=== PATIENT | female | born 1965 | race Caucasian/White ===

== ENCOUNTER 2019-03-14 11:48 | Inpatient (IN) | payer MEDICAID ==
[~2019-03-14] VITALS: Ht 152.4 cm; Wt 60.8 kg
[2019-03-14 11:52] VITALS: BP 113/64
--- NOTE | 2019-03-14 12:29 | NUR ---
PT AMB TO BED 3
--- NOTE | 2019-03-14 12:30 | NUR ---
C/O WEAKNESS, FEVER AND N/V X 5 DAYS WITH GENERALIZED BODY ACHES. TEMP NOW 99.4 ORAL. DENIES UTI SYMPTOMS. WENT TO [facility] YESTERDAY; ADVISED PT TO GO TO ER TO BE EVALUATED FOR DEHYDRATION. PT STATES DRINKS A LOT OF FLUIDS BUT WILL VOMIT. HX- NONE RX- NONE NKA
[2019-03-14] MEDS ORDERED: NACL 0.9% 1,000 ML IV ONE ×2 (13:10→14:50)
[2019-03-14] MEDS ORDERED: NACL 0.9% 1,000 ML IV SCH (13:10)
[2019-03-14 14:30] LABS: BASOPHILS % (AUTO) 0.4 % (0.0-2.0); EOSINOPHILS % (AUTO) 0.2 % (0.0-4.0); HEMATOCRIT 33.1 % (36-48); HEMOGLOBIN 11.4 g/dL (12.0-16.0); LYMPHOCYTES # (AUTO) 1.1 K/uL (2.5-16.5); LYMPHOCYTES % (AUTO) 9.6 % (20.5-51.1); MEAN CORPUSCULAR HEMOGLOBIN 29 pg (27-31); MEAN CORPUSCULAR HGB CONC 34 g/dL (33-37); MEAN CORPUSCULAR VOLUME 84.4 fL (80-94); MONOCYTES % (AUTO) 8.9 % (1.7-9.3); NEUTROPHILS # (AUTO) 9.5 K/uL (1.8-7.7); NEUTROPHILS % (AUTO) 80.9 % (42.2-75.2); PLATELET COUNT (AUTO) 156 K/uL (140-450); RED BLOOD CELL COUNT(AUTO) 3.93 MIL/uL (4.20-5.40); RED CELL DISTRIBUTION WIDTH 14.2 % (11.6-13.7); WHITE BLOOD COUNT (AUTO) 11.8 K/uL (4.8-10.8)
[2019-03-14 14:46] LABS: APPEARANCE,URINE CLEAR (CLEAR); BILIRUBIN,URINE 2+ (NEGATIVE); BLOOD, URINE 2+ (NEGATIVE); COLOR,URINE ORANGE (YELLOW); LEUKOCYTE ESTERASE ,URINE TRACE (NEGATIVE); NITRITE, URINE NEGATIVE (NEGATIVE); UGLUCOSE NEGATIVE (NEGATIVE)
[2019-03-14] MEDS ORDERED: metroNIDAZOLE 500 MG/NS PREMIX 100 ML IV ONE (14:50)
[2019-03-14] MEDS ORDERED: PIPERACILLIN/TAZOBACTAM 3.375 GM in DEXTROSE 5% 50 ML IV ONE (14:50)
[2019-03-14 15:00] LABS: ANION GAP 15.3 (8-16); CARBON DIOXIDE 26.6 mmol/L (21-32); CHLORIDE 101 mmol/L (98-107); SODIUM SERUM 140 mmol/L (136-145)
[2019-03-14] MEDS ORDERED: PIPERACILLIN/TAZOBACTAM 3.375 GM VIAL IV ONE ×2 (15:00→23:03)
[2019-03-14 15:01] LABS: CREATININE 0.6 mg/dL (0.6-1.3); GFR ARICAN-AMERICAN 135 mL/min (>90); GLUCOSE 110 mg/dL (74-106); UREA NITROGEN, BLOOD 11 mg/dL (7-18)
[2019-03-14 15:07] LABS: ALBUMIN 2.8 g/dL (3.4-5.0); ASPARTATE AMINOTRANSFERASE 87 U/L (15-37); TOTAL BILIRUBIN 1.2 mg/dL (0.0-1.0)
[2019-03-14 15:12] LABS: ACETONE, SERUM NEGATIVE (NEGATIVE); AMYLASE 33 U/L (25-115); LIPASE 103 U/L (73-393); MAGNESIUM 2.2 mg/dL (1.8-2.4); POTASSIUM 2.9 mmol/L (3.5-5.1)
[2019-03-14] MEDS ORDERED: KCL 20 MEQ/WATER INJ PREMIX 100 ML IV ONE (15:25)
[2019-03-14] MEDS ORDERED: POTASSIUM CHLORIDE 10 MEQ TABER PO ONE (15:25)
[2019-03-14 15:29] LABS: URIC ACID 3.1 mg/dL (2.6-7.2)
[2019-03-14 15:35] LABS: RBC,URINE 11-20 (MOD) /HPF (0-5)
[2019-03-14 15:36] LABS: WBC,URINE 0-5 /HPF (0-5)
[2019-03-14] MEDS ORDERED: ONDANSETRON 4 MG/2 ML VIAL IM/IVP PRN (15:50)
[2019-03-14] MEDS: NACL 0.9% 1,000 ML IV SCH (15:50)
--- NOTE | 2019-03-14 16:27 | NUR ---
FAMILY AT BEDSIDE. Patient appears to be resting comfortably in bed. Vital Signs within normal limits. Respirations even and unlabored.
[2019-03-14 16:59] LABS: MAGNESIUM 2.2 mg/dL (1.8-2.4)
--- NOTE | 2019-03-14 17:30 | NUR ---
RECEIVED PATIENT FROM CAPABILITY LEAD. PATIENT IS FULL CODE, NKA. DENIES HEALTH HISTORY. PATIENT IS ON ROOM AIR. AAOX4, AMBULATORY. PATIENT RECEIVED 2L BOLUS IN ER AND NS INFUSING AT 100ML/HR. IV KCL INFUSING CONTINUED FROM ER. WILL ENDORSE TO NEXT SHIFT TO CONTINUITY OF CARE
[2019-03-14 17:31] LABS: PHOSPHORUS 1.7 mg/dL (2.5-4.9)
--- NOTE | 2019-03-14 18:00 | NUR ---
PATIENT SIGNED CONSENT FOR CT SCAN WITH CONTRAST, [facility]
[2019-03-14 18:32] LABS: FREE T4 (FREE THYROXINE) 1.21 ng/dL (0.76-1.46); THYROID STIMULATING HORMONE 0.97 uIU/mL (0.34-3.74)
--- NOTE | 2019-03-14 18:44 | NUR ---
PATIENT IS LEAVING UNIT FOR CT SCAN AND ABDOMINAL ULTRASOUND. DISCONNECTED HER FROM IV.
--- NOTE | 2019-03-14 19:10 | NUR ---
RECEIVED REPORT FROM DAY SHIFT NURSE SRAVANTHI RN, PT CURRENTLY AT [place].
--- NOTE | 2019-03-14 19:20 | NUR ---
PT ARRIVED BACK AT UNIT, NO DISTRESS NOTED, IV TO R AC 20G AND L AC 20G, PATENT INTACT, INFUSING WELL, PT ON ROOM AIR, NO SOB NOTED, PT STATED HAVING NO PAIN OR DISCOMFORT AT THIS MOMENT, INITIAL ASSESSMENT DONE, ALL SAFETY PRECAUTION MET, CALL LIGHT WITHIN REACH, WILL CONTINUE TO MONITOR.
[2019-03-14 20:00] VITALS: BP 104/60
[2019-03-14] MEDS: KETOROLAC 30 MG/ML VIAL IM PRN (20:06)
--- NOTE | 2019-03-14 20:06 | NUR ---
TORADOL PER DR ORDER GIVEN FOR TEMPERATURE 101.6, COOLING MEASURES ADMINISTERED, PT TOLERATED WELL, NO DISTRESS NOTED, CURRENTLY PT IS HAVING BEDSIDE US. CALL LIGHT WITHIN REACH, US TECH AT BEDSIDE, WILL CONTINUE TO MONITOR.
[2019-03-14 20:40] LABS: ANION GAP 14.4 (8-16); CARBON DIOXIDE 24.2 mmol/L (21-32); CREATININE 0.6 mg/dL (0.6-1.3); POTASSIUM 3.6 mmol/L (3.5-5.1)
--- NOTE | 2019-03-14 21:06 | NUR ---
RECHECKED PT TEMPERATURE 100.0, PT RESTING, NO DISTRESS NOTED, CALL LIGHT WITHIN REACH, COOLING MEASURE CONTINUED, WILL CONTINUE TO MONITOR.
--- NOTE | 2019-03-14 22:33 | NUR ---
PT RESTING NO DISTRESS NOTED, TEMP TAKEN 99.4, PT RESTING, COOLING MEASURE CONTINUED, WILL CONTINUE TO MONITOR.
[2019-03-14 22:41] LABS: BARBITURATE, URINE NEG. ng/ml (NEG <=200); BENZODIAZEPINE, URINE NEG. ng/mL (NEG <=200); CANNABINOID, URINE NEG. ng/mL (NEG <=50); COCAINE, URINE NEG. ng/mL (NEG <=300); OPIATE, URINE NEG. ng/mL (NEG <=2000); PHENCYCLIDINE SCREEN,URINE NEG. ng/mL (NEG <=25)
[2019-03-14] MEDS: PIPERACILLIN/TAZOBACTAM 3.375 GM in DEXTROSE 5% 50 ML IV SCH (23:15)
--- NOTE | 2019-03-14 23:15 | NUR ---
DUE MEDICATION ADMINISTERED, PT TOLERATED WELL, NO DISTRESS NOTED, CALL LIGHT WITHIN REACH, WILL CONTINUE TO MONITOR.
--- NOTE | 2019-03-14 23:55 | NUR ---
PT SLEEPING, NO DISTRESS NOTED, V/S TAKEN, TEMP WENT DOWN TO 98.1, NO DISTRESS NOTED, CALL LIGHT WITHIN REACH, WILL CONTINUE TO MONITOR.
[2019-03-15] VITALS: BP 101/56
--- NOTE | 2019-03-15 03:00 | NUR ---
PT AMBULATED TO RESTROOM, TOLERATED WELL, NO DISTRESS NOTED, CALL LIGHT WITHIN REACH, WILL CONTINUE TO MONITOR.
[2019-03-15 04:00] VITALS: BP 109/68
--- NOTE | 2019-03-15 04:22 | NUR ---
CHECKED ON PT, PT SLEEPING, NO DISTRESS NOTED, V/S TAKEN, CALL LIGHT WITHIN REACH, WILL CONTINUE TO MONITOR.
[2019-03-15] MEDS: NACL 0.9% 1,000 ML IV SCH ×3 (04:49→20:26)
[2019-03-15] MEDS: PIPERACILLIN/TAZOBACTAM 3.375 GM in DEXTROSE 5% 50 ML IV SCH (06:20)
[2019-03-15] MEDS ORDERED: PIPERACILLIN/TAZOBACTAM 3.375 GM VIAL IV ONE (06:38)
[2019-03-15 07:06] LABS: ANION GAP 14.3 (8-16); CARBON DIOXIDE 22.2 mmol/L (21-32); CREATININE 0.6 mg/dL (0.6-1.3); POTASSIUM 3.5 mmol/L (3.5-5.1)
--- NOTE | 2019-03-15 07:17 | NUR ---
ENDORSED PT TO DAY SHIFT NURSE RN SRAVANTHI, ZACKERY RESTING, NO DISTRESS NOTED, CALL LIGHT WITHIN REACH.
[2019-03-15 07:22] LABS: CHOL/HDL RATIO 13.9 (1-4.5)
--- NOTE | 2019-03-15 07:25 | NUR ---
RECEIVED REPORT FROM NIGHT RN. PATIENT IS FULL CODE, NKA, ON ROOM AIR. CURRENTLY IN BED AWAKE. PT IS NPO FOR POSSIBLE ERCP. PT HAD LOW GRADE FEVER OVERNIGHT, WILL MONITOR TODAY AND UTILIZE COOLING MEASURES IF NEEDED. PENDING CONSULT WITH DR HICKS FOR UTERINE MASS SEEN IN ULTRASOUND. WILL CONTINUE WITH PLAN OF CARE FOR THE DAY.
[2019-03-15 07:27] LABS: BASOPHILS % (AUTO) 0.3 % (0.0-2.0); EOSINOPHILS % (AUTO) 0.1 % (0.0-4.0); HEMATOCRIT 30.5 % (36-48); HEMOGLOBIN 10.4 g/dL (12.0-16.0); LYMPHOCYTES # (AUTO) 1.1 K/uL (2.5-16.5); LYMPHOCYTES % (AUTO) 8.6 % (20.5-51.1); MEAN CORPUSCULAR HEMOGLOBIN 29 pg (27-31); MEAN CORPUSCULAR HGB CONC 34 g/dL (33-37); MEAN CORPUSCULAR VOLUME 84.7 fL (80-94); MONOCYTES # (AUTO) 1.6 K/uL (0.8-1.0); MONOCYTES % (AUTO) 12.6 % (1.7-9.3); NEUTROPHILS % (AUTO) 78.4 % (42.2-75.2); PLATELET COUNT (AUTO) 112 K/uL (140-450); RED CELL DISTRIBUTION WIDTH 14.2 % (11.6-13.7); WHITE BLOOD COUNT (AUTO) 12.7 K/uL (4.8-10.8)
[2019-03-15 08:00] VITALS: BP 116/61
--- NOTE | 2019-03-15 08:33 | NUR ---
PATIENT HAS BEEN SCREENED AND CATEGORIZED LOW NUTRITION RISK. PATIENT WILL BE SEEN WITHIN 7 DAYS OF ADMISSION. 03/20/[address]
[2019-03-15] MEDS ORDERED: SODIUM FERRIC GLUCONATE 125 MG in NACL 0.9% 100 ML IV SCH ×2 (10:00→12:00)
--- NOTE | 2019-03-15 10:00 | NUR ---
PATIENT RECEIVED LATE BREAKFAST TRAY. PER DR DOYLE, SHE DOESN'T NEED TO BE NPO D/T NO PROCEDURES FORESEEN FOR TODAY.
[2019-03-15 12:00] VITALS: BP 127/71
--- NOTE | 2019-03-15 12:08 | NUR ---
PATIENT IS SITTING UP IN BED, RESTING QUIETLY. NO COMPLAINTS AT THIS TIME.
--- NOTE | 2019-03-15 13:32 | NUR ---
ADMINISTERED TORADOL FOR TEMP 100.4 AND UTILIZED COOLING MEASURES VIA ICE PACKS. WILL RE-ASSESS TEMP AFTER 30 MIN.
[2019-03-15] MEDS: KETOROLAC 30 MG/ML VIAL IM PRN ×2 (13:33→19:52)
--- NOTE | 2019-03-15 14:00 | NUR ---
RECHECKED TEMP, WENT DOWN TO 100.1
--- NOTE | 2019-03-15 14:40 | NUR ---
BEGAN FIRST DOSE ROCEPHIN INFUSION. PATIENTS TEMP CAME DOWN TO 99.2
--- NOTE | 2019-03-15 15:50 | NUR ---
PATIENTS TEMPERATURE REDUCED TO 98.1. FAMILY AT BEDSIDE.
--- NOTE | 2019-03-15 15:55 | NUR ---
OBTAINED CONSENT FOR CT LIVER BX. PATIENTS BROTHER IS AT BEDSIDE AND DR DOYLE CAME AND EXPLAINED PROCEDURE. PATIENTS BROTHER SIGNED CONSENT FORM.
[2019-03-15 16:00] VITALS: BP 105/63
--- NOTE | 2019-03-15 16:06 | NUR ---
SPOKE TO DR BARROW AT [phone]. I ASKED IF HE WAS AVAILABLE TO DO CT GUIDED LIVER BIOPSY TOMORROW. HE SAID HE USUALLY DOES NOT DO CASES LIKE THAT, HE SAID HE WILL LOOK INTO IT. GAVE HIM THE PATIENTS MR# AND INFORMATION AND HE WILL CALL ME BACK TO SEE IF ANYMORE IS AVAILABLE TO DO IT TOMORROW
--- NOTE | 2019-03-15 16:49 | NUR ---
PT RESTING QUIETLY IN BED. NO COMPLAINTS AT THIS TIME. DENIES PAIN. TEMP AT 98.1
[2019-03-15] MEDS: metroNIDAZOLE 500 MG/NS PREMIX 100 ML IV SCH ×2 (17:20→23:30)
--- NOTE | 2019-03-15 18:34 | NUR ---
PATIENT RESTING QUIETLY IN BED. FAMILY AT BEDSIDE. ALL NEEDS HAVE BEEN MET. WILL ENDORSE TO FOOD SERVICE AIDE FOR CONTINUITY OF CARE.
--- NOTE | 2019-03-15 18:46 | NUR ---
PATIENT C/O CHILLS. TOOK TEMP, 98.3. OBTAINED STOOL SAMPLE AND SENT OVER TO LAB.
--- NOTE | 2019-03-15 19:15 | NUR ---
RECEIVED BEDSIDE REPORT FROM AM SHIFT REECE FISHMAN. PATIENT LAYING IN BED AWAKE WITH FAMILY AT BEDSIDE. NO SOB OR DISTRESS NOTED. ON ROOM AIR. IV ACCESS ON LEFT AND RIGHT AC 20 GAUGE, PATENT AND INTACT, INFUSING WELL. INITIAL ASSESSMENT DONE. SAFETY MEASURES IN PLACE. CALL LIGHT WITHIN PATIENT REACH. WILL CONTINUE TO MONITOR PATIENT.
--- NOTE | 2019-03-15 19:52 | NUR ---
PRN TORADOL GIVEN FOR TEMP OF 103.1 ORAL. COOLING MEASURES IN PLACE. WILL CONTINUE TO MONITOR PATIENT
--- NOTE | 2019-03-15 20:01 | NUR ---
TEMPERATURE RECHECKED WITH TEMP OF 100.0 ORAL. COOLING MEASURES STILL IN PLACE. WILL CONTINUE TO MONITOR. Addendum: 03/15/19 at 2304 by Ivonne Zafar RN TIME [id number]
[2019-03-15 20:30] VITALS: BP 109/63
--- NOTE | 2019-03-15 22:05 | NUR ---
TEMPERATURE REASSESSED WITH TEMP OF 98.9. PATIENT RESTING COMFORTABLY IN BED. WILL CONTINUE TO MONITOR PATIENT.
--- NOTE | 2019-03-16 00:24 | NUR ---
VITAL SIGNS DONE. PT SLEEPING COMFORTABLY IN BED. VISIBLE CHEST RISE AND FALL NOTED. WILL CONTINUE TO MONITOR PATIENT.
[2019-03-16 00:29] VITALS: BP 103/64
--- NOTE | 2019-03-16 02:07 | NUR ---
ROUNDS DONE. NO DISTRESS NOTED. WILL CONTINUE TO MONITOR PATIENT.
[2019-03-16 04:39] VITALS: BP 117/76
--- NOTE | 2019-03-16 04:40 | NUR ---
VITAL SIGNS DONE. PATIENT NOTED WITH TEMP OF 101.4. WILL MEDICATE PER ORDER. WILL CONTINUE TO MONITOR PATIENT.
[2019-03-16] MEDS: NACL 0.9% 1,000 ML IV SCH ×3 (04:46→22:09)
[2019-03-16] MEDS: KETOROLAC 30 MG/ML VIAL IM PRN ×2 (04:47→13:09)
--- NOTE | 2019-03-16 04:47 | NUR ---
PRN TORADOL GIVEN FOR TEMP OF 101.6. COOLING MEASURES RENDERED. WILL CONTINUE TO MONITOR PATIENT.
--- NOTE | 2019-03-16 05:58 | NUR ---
FOLLOW UP TEMPERATURE OF 99.8. COOLING MEASURES STILL IN PLACE. WILL CONTINUE TO MONITOR PATIENT.
[2019-03-16] MEDS: metroNIDAZOLE 500 MG/NS PREMIX 100 ML IV SCH ×3 (06:12→18:13)
[2019-03-16 06:18] LABS: BASOPHILS % (AUTO) 0.3 % (0.0-2.0); EOSINOPHILS % (AUTO) 0.1 % (0.0-4.0); HEMATOCRIT 29.1 % (36-48); HEMOGLOBIN 9.8 g/dL (12.0-16.0); LYMPHOCYTES % (AUTO) 6.7 % (20.5-51.1); MEAN CORPUSCULAR HEMOGLOBIN 29 pg (27-31); MEAN CORPUSCULAR HGB CONC 34 g/dL (33-37); MEAN CORPUSCULAR VOLUME 85.3 fL (80-94); MONOCYTES # (AUTO) 1.5 K/uL (0.8-1.0); MONOCYTES % (AUTO) 10.1 % (1.7-9.3); NEUTROPHILS # (AUTO) 12.5 K/uL (1.8-7.7); NEUTROPHILS % (AUTO) 82.8 % (42.2-75.2); PLATELET COUNT (AUTO) 157 K/uL (140-450); RED BLOOD CELL COUNT(AUTO) 3.41 MIL/uL (4.20-5.40); RED CELL DISTRIBUTION WIDTH 14.4 % (11.6-13.7); WHITE BLOOD COUNT (AUTO) 15.1 K/uL (4.8-10.8)
[2019-03-16 06:56] LABS: ALBUMIN 1.8 g/dL (3.4-5.0); CREATININE 0.5 mg/dL (0.6-1.3); TOTAL BILIRUBIN 1.4 mg/dL (0.0-1.0)
--- NOTE | 2019-03-16 07:16 | NUR ---
PATIENT IN STABLE CONDITION. NO DISTRESS NOTED. CALL LIGHT WITHIN PATIENT REACH. ENDORSED TO AM SHIFT REECE FERRERA FOR CONTINUITY OF CARE.
--- NOTE | 2019-03-16 07:18 | NUR ---
RECEIVED BEDSIDE REPORT FROM SAFETY ENGINEER NURSE FOR CONTINUITY OF CARE. PATIENT IS AWAKE AND RESTING ON BED AT THIS TIME. PATIENT IS AAOX4, SPEAKS JAPANESE AND UNDERSTAND SOME SYRIAC. RESPIRATION EVEN AND UNLABORED ON RA. DENIED PAIN, SOB, AND DIZZINESS. NO SIGNS OF DISTRESS NOTED. IV ON R AND L AC 20G, CLEAN AND INTACT, RAC INFUSING PER MD ORDER. PATIENT IS CONTINENT AND ABLE TO AMBULATE WITH STANDBY ASSIST. DISCUSSED PLAN OF CARE WITH PATIENT AND PATIENT VERBALIZED OK. NPO BY MIDNIGHT IN PLACE AND SIGN POSTED AND PATIENT WAS AWARE SHE IS NPO. SAFETY MEASURES IN PLACE. BED IN LOW POSITION AND CALL LIGHT WITHIN REACH. INSTRUCTED PATIENT TO USE THE CALL LIGHT FOR ANY ASSISTANCE AND PATIENT WAS AWARE.
[2019-03-16 08:00] VITALS: BP 107/60
[2019-03-16] MEDS: ASCORBIC ACID 500 MG TAB PO SCH (09:02)
[2019-03-16] MEDS: FERROUS SULFATE 325 MG TABEC PO SCH ×2 (09:02→18:13)
[2019-03-16] MEDS: LACTOBACILLUS RHAMNOSUS GG 1 EACH CAP PO SCH (09:02)
--- NOTE | 2019-03-16 09:02 | NUR ---
ADMINISTERED MEDS PER MD ORDER, PATIENT TOLERATED WELL. MEDS EDUCATION PROVIDED TO PATIENT AND PATIENT VERBALIZED UNDERSTANDING. PATIENT AWAKE AND RESTING ON BED. DENIED PAIN, SOB, NAUSEA, AND VOMITING. NO SIGNS OF DISTRESS NOTED. TELE MONITOR ATTACHED. SAFETY MEASURES IN PLACE. BED IN LOW POSITION AND CALL LIGHT WITHIN REACH. INSTRUCTED PATIENT TO USE THE CALL LIGHT FOR ANY ASSISTANCE AND PATIENT WAS AWARE.
[2019-03-16] MEDS ORDERED: KCL 20 MEQ/WATER INJ PREMIX 200 ML IV ONE (10:00)
--- NOTE | 2019-03-16 11:24 | NUR ---
PATIENT AWAKE AND RESTING ON BED AT THIS TIME. DENIED SOB, PAIN, DIZZINESS. NO SIGNS OF DISTRESS NOTED. SAFETY MEASURES IN PLACE. BED IN LOW POSITION AND CALL LIGHT WITHIN REACH. INSTRUCTED PATIENT TO USE THE CALL LIGHT FOR ANY ASSISTANCE AND PATIENT WAS AWARE.
--- NOTE | 2019-03-16 11:50 | NUR ---
PATIENT IS TALKING TO VISITOR MICHEL BY BEDSIDE. NO SIGNS OF DISTRESS NOTED. SAFETY MEASURES IN PLACE. BED IN LOW POSITION AND CALL LIGHT WITHIN REACH. INSTRUCTED PATIENT TO USE THE CALL LIGHT FOR ANY ASSISTANCE AND PATIENT WAS AWARE.
[2019-03-16] MEDS ORDERED: POTASSIUM CHLORIDE 40 MEQ, LIDOCAINE MPF 1% 25 MG in NACL 0.9% 250 ML IV SCH (12:00)
--- NOTE | 2019-03-16 12:18 | NUR ---
ADMINISTERED MED VIA IVPB PER MD ORDER, MED EDUCATION PROVIDED TO PATIENT AT BEDSIDE, PATIENT VERBALIZED UNDERSTANDING. PATIENT AWAKE AND TALKING TO VISITOR MICHEL BY BEDSIDE. NO SIGNS OF DISTRESS NOTED. SAFETY MEASURES IN PLACE. BED IN LOW POSITION AND CALL LIGHT WITHIN REACH. INSTRUCTED PATIENT TO USE THE CALL LIGHT FOR ANY ASSISTANCE AND PATIENT WAS AWARE.
--- NOTE | 2019-03-16 13:09 | NUR ---
PATIENT COMPLAINED THAT SHE FEELS WARM ON HER FOREHEAD, CHECKED TEMP AND RECEIVED 101.5 ORALLY. ADMINISTERED KETOROLAC VIA IVP PER MD ORDER, MED EDUCATION PROVIDED TO PATIENT AND MICHEL AT BEDSIDE. APPLIED COOLING PAD ON PATIENT FOREHEAD. WILL REASSESS TEMP SHORTLY. PATIENT IS RESTING ON BED AT THIS TIME. SAFETY MEASURES IN PLACE. BED IN LOW POSITION AND CALL LIGHT WITHIN REACH. INSTRUCTED PATIENT TO USE THE CALL LIGHT FOR ANY ASSISTANCE AND PATIENT WAS AWARE.
--- NOTE | 2019-03-16 13:40 | NUR ---
REASSESSED TEMP AND RECEIVED 99.3 ORALLY. PATIENT COMPLAINED HER MOUTH IS SO DRY, EDUCATED PATIENT THAT SHE HAS TO BE NPO FOR HER PROCEDURE AND FOR HER SAFETY, PATIENT AND MICHEL VERBALIZED UNDERSTANDING. PROVIDED ICE CHIPS. PATIENT AWAKE AND TALKING TO MICHEL BY BEDSIDE. SAFETY MEASURES IN PLACE. BED IN LOW POSITION AND CALL LIGHT WITHIN REACH. INSTRUCTED PATIENT TO USE THE CALL LIGHT FOR ANY ASSISTANCE AND PATIENT WAS AWARE.
[2019-03-16 13:43] LABS: FERRITIN 868 ng/mL (15 - 150); TRANSFERRIN 157 mg/dL (200 - 370)
--- NOTE | 2019-03-16 15:16 | NUR ---
PATIENT IS GETTING ECHOCARDIOGRAM. PRINCIPAL ELECTRICAL ENGINEER QUIN IS BY BEDSIDE. ASSESSED PATIENT ORALLY AND RECEIVED 98.8. PATIENT DENIED NAUSEA, VOMITING, AND DIZZINESS. NO SIGNS OF DISTRESS NOTED. SAFETY MEASURES IN PLACE. BED IN LOW POSITION AND CALL LIGHT WITHIN REACH. INSTRUCTED PATIENT TO USE THE CALL LIGHT FOR ANY ASSISTANCE AND PATIENT SAID OK.
--- NOTE | 2019-03-16 15:25 | NUR ---
PATIENT AWAKE AND TALKING TO [id number] BELÉN AT BEDSIDE. NO SIGNS OF DISTRESS NOTED. SAFETY MEASURES IN PLACE. BED IN LOW POSITION AND CALL LIGHT WITHIN REACH. INSTRUCTED PATIENT TO USE THE CALL LIGHT FOR ANY ASSISTANCE AND PATIENT SAID OK.
[2019-03-16 16:00] VITALS: BP 114/63
--- NOTE | 2019-03-16 17:48 | NUR ---
PATIENT AWAKE AND RESTING ON BED AT THIS TIME. DENIED PAIN,NAUSEA AND VOMITING. NO SIGNS OF DISTRESS NOTED. SAFETY MEASURES IN PLACE. BED IN LOW POSITION AND CALL LIGHT WITHIN REACH. INSTRUCTED PATIENT TO USE THE CALL LIGHT FOR ANY ASSISTANCE AND PATIENT WAS AWARE.
--- NOTE | 2019-03-16 18:13 | NUR ---
ADMINISTERED MED VIA IVPB PER MD ORDER, MED EDUCATION PROVIDED TO PATIENT AT BEDSIDE, PATIENT VERBALIZED UNDERSTANDING. PATIENT AWAKE AND TALKING TO VISITOR MICHEL AND EATING DINNER. NO SIGNS OF DISTRESS NOTED. SAFETY MEASURES IN PLACE. BED IN LOW POSITION AND CALL LIGHT WITHIN REACH. INSTRUCTED PATIENT TO USE THE CALL LIGHT FOR ANY ASSISTANCE AND PATIENT WAS AWARE.
--- NOTE | 2019-03-16 19:26 | NUR ---
ENDORSED PATIENT AT BEDSIDE TO BUCKLER AND LACER NURSE FOR CONTINUITY OF CARE. PATIENT AWAKE AND TALKING TO VISITORS AT BEDSIDE. NO SIGNS OF DISTRESS NOTED. PATIENT IS IN STABLE CONDITION. SAFETY MEASURES IN PLACE. BED IN LOW POSITION AND CALL LIGHT WITHIN REACH.
--- NOTE | 2019-03-16 19:35 | NUR ---
RECEIVED FROM A RN IN BED AWAKE AND ALERT WITH FAMILY MEMBERS IN HERE VISITING. NO COMPLAINTS DONE . CALL LIGHT WITH IN REACH. PT. IVF SITES INTACT AND WITH GOOD BLOOD RETURN . DX. OF ACUTE LIVER ABSCESS. CARE PLANS FOR THE NIGHT DISCUSSED WITH THEM.
[2019-03-16] MEDS: POTASSIUM CHLORIDE 10 MEQ TABER PO SCH (22:05)
[2019-03-16] MEDS: SODIUM FERRIC GLUCONATE 125 MG in NACL 0.9% 100 ML IV SCH (22:06)
--- NOTE | 2019-03-16 22:22 | NUR ---
PT. IN BED SLEEPING. AWAKE AND ABLE TO VERBALIZE SIMPLE NEEDS. REMINDED TO USE CALL LIGHT FOR ANY HELP SHE MAY NEED. UNDERSTANDS ALGERIAN . ENCOURAGED TO CALL FOR ANY HELP SHE MAY NEED.
[2019-03-17] VITALS: BP_SYST 106; BP_SYST 117; BP_DIAS 63; BP_DIAS 65
[2019-03-17] MEDS: metroNIDAZOLE 500 MG/NS PREMIX 100 ML IV SCH ×4 (01:00→17:59)
[2019-03-17] MEDS: POTASSIUM CHLORIDE 10 MEQ TABER PO SCH (01:02)
--- NOTE | 2019-03-17 01:46 | NUR ---
PT. IS SLEEPING AT THIS TIME. NO RESTLESSNESS. ENDORSED TO CHARGE NURSE FOR CONTINUITY OF CARE.
--- NOTE | 2019-03-17 01:47 | NUR ---
RECEIVED BEDSIDE REPORT FROM PM NURSE MALU. PATIENT ASLEEP IN BED. NO SOB OR DISTRESS NOTED ON ROOM AIR. IV ACCESS ON LEFT AND RIGHT AC. PATENT AND INTACT, INFUSING WELL. INITIAL ASSESSMENT DONE. BED IN LOW. PATIENT IS AMBULATORY.CALL LIGHT WITHIN PATIENT REACH. WILL CONTINUE TO MONITOR PT.
--- NOTE | 2019-03-17 03:30 | NUR ---
ROUNDS DONE. PATIENT ASSISTED TO RESTROOM AT THIS TIME. WILL CONTINUE TO MONITOR PATIENT.
--- NOTE | 2019-03-17 05:20 | NUR ---
ROUNDS DONE. PT SLEEPING COMFORTABLY. VISIBLE CHEST RISE AND FALL NOTED. WILL CONTINUE TO MONITOR.
[2019-03-17] MEDS: NACL 0.9% 1,000 ML IV SCH ×2 (05:25→14:02)
[2019-03-17] MEDS ORDERED: DEXT 5% /NACL 0.9% 1,000 ML IV SCH (06:20)
[2019-03-17 06:58] LABS: MAGNESIUM 1.8 mg/dL (1.8-2.4); PHOSPHORUS 2.5 mg/dL (2.5-4.9)
[2019-03-17 07:06] LABS: ANION GAP 13.1 (8-16); CARBON DIOXIDE 22.1 mmol/L (21-32); CREATININE 0.5 mg/dL (0.6-1.3); POTASSIUM 4.2 mmol/L (3.5-5.1)
[2019-03-17 07:25] LABS: HEMATOCRIT 26.3 % (36-48); HEMOGLOBIN 8.8 g/dL (12.0-16.0); MEAN CORPUSCULAR HEMOGLOBIN 29 pg (27-31); MEAN CORPUSCULAR HGB CONC 34 g/dL (33-37); MEAN CORPUSCULAR VOLUME 85.5 fL (80-94); PLATELET COUNT (AUTO) 240 K/uL (140-450); RED BLOOD CELL COUNT(AUTO) 3.08 MIL/uL (4.20-5.40); RED CELL DISTRIBUTION WIDTH 14.8 % (11.6-13.7)
--- NOTE | 2019-03-17 07:25 | NUR ---
Report received from nurse Coronado. Pt sleeping, appears comfortable. IVF infusing per order, Pt maintained NPO per order . Call light and personal items within easy reach, no s/s of acute distress noted at this time, will continue to monitor.
--- NOTE | 2019-03-17 07:25 | NUR ---
PT IN STABLE CONDITION. CALL LIGHT WITHIN PATIENT REACH. ENDORSED TO AM SHIFT NURSE FOR CONTINUITY OF CARE.
[2019-03-17] MEDS: FERROUS SULFATE 325 MG TABEC PO SCH ×2 (08:00→17:59)
[2019-03-17 08:07] LABS: HEPATITIS A ANTIBODY IGM Negative (Negative); HEPATITIS B CORE AB TOTAL Negative (Negative); HEPATITIS B SURFACE ANTIBODY Non Reactive (.); HEPATITIS B SURFACE ANTIGEN Negative (Negative)
[2019-03-17] MEDS: LACTOBACILLUS RHAMNOSUS GG 1 EACH CAP PO SCH (08:55)
[2019-03-17] MEDS: ASCORBIC ACID 500 MG TAB PO SCH (08:56)
[2019-03-17 09:18] LABS: LYMPHOCYTES % (MANUAL) 2 % (20-46); MONOCYTES % (MANUAL) 3 % (5-12)
--- NOTE | 2019-03-17 09:23 | NUR ---
DISCHARGE PLANNING : 54 YRS OLD FEMALE WAS ADMITTED WITH THE DX OF SEVER ABDOMINAL PAIN, NO MEDICAL HISTORY, WAS BROUGHT BY HER FROM HOME A/OX4 ,CT SHOWS ABSCESS ON RIGHT SIDE OF THE LIVER R/O MALIGNANCY D/C PLAN , CT ABDOMEN AND PELVIS AND LIVER BIOPSY TO BE DONE BY [facility] TO FOLLOW : Addendum: 03/18/19 at 1004 by Faith Carlisle CM DISCHARGE PLANNING : IR UNABLE TO PERFORM BIOPSY D/C PLAN TO TRANSFER TO HIGHER LEVEL OF CARE. FAXED TO [facility] AND [facility] TO FOLLOW Addendum: 03/18/19 at 1017 by Faith Carlisle CM D/C PLANNING : RECEIVED A CALL FROM [place] ALHAJI JONES WITH [facility] , PROVIDED ALL THE PT'S INFORMATION AND RESIDENT'S CELL PHONE ,PER [facility] WILL REVIEW THE CASE AND WILL CALL BACK.
--- NOTE | 2019-03-17 09:30 | NUR ---
Pt a/o able to communicate needs, maintained NPO per order for procedure, pt denies pain, denies gastric distress. Encouraged pt to ambulate per order, declines at this time. Safety precaution in place, Call light and personal items within easy reach, will continue to monitor.
[2019-03-17] MEDS ORDERED: fentaNYL 0.05 MG/ML VIAL ONE (10:59)
[2019-03-17] MEDS ORDERED: MIDAZOLAM 2 MG/2 ML VIAL ONE (11:00)
[2019-03-17] MEDS ORDERED: NALOXONE 0.4 MG/ML VIAL ONE (11:00)
[2019-03-17] MEDS ORDERED: FLUMAZENIL 0.5 MG/5 ML VIAL IVP ONE (11:02)
[2019-03-17] MEDS ORDERED: LIDOCAINE 1% 500 MG/50 ML VIAL ONE (11:18)
--- NOTE | 2019-03-17 11:23 | NUR ---
Pt remains awake a/o able to communicate needs, pt transported off unit to surgical services via bed, no s/s of acute distress noted at this time.
--- NOTE | 2019-03-17 12:41 | NUR ---
Pt remains A/O able to communicate needs, returned from surgical services, dressing to biopsy site dry and intact, pt denies pain or distress, family at bedside. No s/s of acute distress noted at this time. Safety precaution in place, Call light and personal items within easy reach, will continue to monitor.
--- NOTE | 2019-03-17 15:00 | NUR ---
Pt sleeping at this time, appears comfortable, no s/s of acute distress noted, safety precaution in place, call light and personal items within easy reach, will continue to monitor.
--- NOTE | 2019-03-17 15:18 | NUR ---
[facility] Patient: Dari Rodriguez : 1965 Age/Sex: 54/F Unit#: [id number] Room/Bed: 125/A User: Lara SOLORIO Date: 03/17/19 14:47 Type: CM: Discharge Planning Name: Anastasia. [place] Home Relationship: mother in law Pre-Admission Living Arrangements: Lives with Other Other: [id number] Prior ADL Independent Current Home Health Name/Tel: N/A Current Name/Tel: N/A Current Hospice Name/Tel: N/A Current Dialysis Name/Tel: N/A Healthcare Decision Maker: Patient Advance Directive No Tentative Discharge Plan Summary: Patient is a 54 year old female who was admitted for sepsis secondary to possible cholangitis versus hepatic abscess. I met with patient at bedside. Patient alert and oriented x4. Patient speaks Turkmen. Patient lives at home with her family and plans to return home upon discharge. Patient does not have a pcp at this time. I emphasized to her the importance of following up with a physician regularly and post discharge. She verbalized understanding. I provided her with a list of low cost clinics. She is independent with ADLs and does not use any DME at home. She denied hx of mental health. She also denied alcohol/substance abuse. She is not able to recall her [id number] Rani's phone number. She has had good communication with attending MD, resident MD, and nursing staff. She does not have any questions nor concerns at this time. Carpenter Repairer and/or Assistant Teaching Professor will follow up as needed. Signature: LOUIS Kinsey Date: Mar 17, 2019 Addendum: 03/17/19 at 1520 by Lara Altamirano I provided patient with education on Advance Directive and provided her with a blank form.
[2019-03-17 15:55] VITALS: BP 112/60
[2019-03-17] MEDS: KETOROLAC 30 MG/ML VIAL IVP PRN (15:55)
--- NOTE | 2019-03-17 17:15 | NUR ---
Pt remains a/o able to communicate needs, currently ambulating in duggan with family. Pt denies pain, denies sob, denies n/v, no s/s acute distress at this time, will continue to monitor.
--- NOTE | 2019-03-17 19:10 | NUR ---
Pt remains awake a/o able to communicate needs. Pt denies pain or discomfort, no s/s of acute distress noted at this time. Family remains at bedside. Safety precautions maintained in place. Call light and personal items within easy reach, no s/s of acute distress noted at this time. Report endorsed to oncoming nurse
--- NOTE | 2019-03-17 19:11 | NUR ---
RECD. RESTING IN BED, AWAKE, A/OX4. RESPIRATION EVEN AND UNLABORED. IV OF NS AT 70 ML/HR INFUSING, RIGHT AC G20. ABDOMEN WITH SOME DISTENSION, WITH POSITIVE BOWEL SOUNDS ON ALL QUADRANTS. PLAN OF CARE FOR THE SHIFT DISCUSSED. VERBALIZED UNDERSTANDING. DENIES PAIN 0/10. FAMILY AT THE BEDSIDE.
[2019-03-17 20:00] VITALS: BP 88/50
--- NOTE | 2019-03-17 20:00 | NUR ---
VS CHECKED - LEFT ARM - 88/50, RIGHT ARM - 88/57, HR -92. WILL INFORMED .
[2019-03-17] MEDS ORDERED: NACL 0.9% 500 ML IV ONE (20:30)
--- NOTE | 2019-03-17 20:55 | NUR ---
NS 500 ML BOLUS STARTED.
--- NOTE | 2019-03-17 21:00 | NUR ---
Patient's Plan of Care was discussed and reviewed with ILLUSIONIST: JAZ TORRES
[2019-03-17] MEDS: SODIUM FERRIC GLUCONATE 125 MG in NACL 0.9% 100 ML IV SCH (21:31)
--- NOTE | 2019-03-17 21:31 | NUR ---
LISETTEIT IVPB INFUSED BY REECE FAROOQ.
--- NOTE | 2019-03-17 21:55 | NUR ---
VS CHECKED - BP - 87/50, HR - 93. INFORMED DR. CAZARES.
--- NOTE | 2019-03-17 22:45 | NUR ---
VS CHECKED AGAIN . BP - 106/62, HR - 93. PATIENT RESTING COMFORTABLY SLEEPING IN BED.
[2019-03-18] MEDS: metroNIDAZOLE 500 MG/NS PREMIX 100 ML IV SCH ×4 (00:27→18:22)
--- NOTE | 2019-03-18 00:55 | NUR ---
ASSISTED TO BSC, BACK TO BED AFTER BM. ADVISED TO GO TO SLEEP.
--- NOTE | 2019-03-18 01:00 | NUR ---
SLEEPING COMFORTABLY IN BED.
[2019-03-18 01:45] VITALS: BP 102/58
--- NOTE | 2019-03-18 03:00 | NUR ---
STILL SLEEPING COMFORTABLY IN BED.
[2019-03-18] MEDS: NACL 0.9% 1,000 ML IV SCH ×3 (04:03→16:08)
[2019-03-18 07:00] LABS: ANION GAP 13.8 (8-16); CARBON DIOXIDE 21.4 mmol/L (21-32); CREATININE 0.5 mg/dL (0.6-1.3); POTASSIUM 3.2 mmol/L (3.5-5.1)
--- NOTE | 2019-03-18 07:00 | NUR ---
ABLE TO SLEEP WELL. AMBULATED TO BR TO VOID. CONDITION REMAIN STABLE. WILL ENDORSED TO AM SHIFT NURSE FOR CONTINUITY OF CARE.
[2019-03-18 07:07] LABS: MAGNESIUM 1.6 mg/dL (1.8-2.4); PHOSPHORUS 2.5 mg/dL (2.5-4.9)
--- NOTE | 2019-03-18 07:30 | NUR ---
RECEIVED REPORT FROM SINGLE CORNER CUTTER NURSE. PATIENT IN STABLE CONDITION.
[2019-03-18 08:00] VITALS: BP 121/61
[2019-03-18] MEDS ORDERED: POTASSIUM CHLORIDE 10 MEQ TABER PO SCH (08:30)
[2019-03-18] MEDS ORDERED: MAG SULF 2000 MG/WATER PREMIX 50 ML IV SCH (08:30)
[2019-03-18] MEDS: ASCORBIC ACID 500 MG TAB PO SCH (08:52)
[2019-03-18] MEDS: FERROUS SULFATE 325 MG TABEC PO SCH ×2 (08:52→18:22)
[2019-03-18] MEDS: LACTOBACILLUS RHAMNOSUS GG 1 EACH CAP PO SCH (08:52)
--- NOTE | 2019-03-18 09:00 | NUR ---
AM MEDICATIONS GIVEN. PT ALERT ORIENTED X 4. PATIENT AMBULATED TO THE BATHROOM. IV INTACT AND PATENT TO RIGHT AC. IVF INFUSING AT 70ML/HR. TOLERATING WELL. NO S/S OF DISTRESS NOTED.
[2019-03-18 09:13] LABS: RED BLOOD CELL COUNT(AUTO) 3.17 MIL/uL (4.20-5.40)
[2019-03-18 09:14] LABS: HEMATOCRIT 27.3 % (36-48); HEMOGLOBIN 9.3 g/dL (12.0-16.0); MEAN CORPUSCULAR HEMOGLOBIN 29 pg (27-31); MEAN CORPUSCULAR HGB CONC 34 g/dL (33-37); MEAN CORPUSCULAR VOLUME 86.2 fL (80-94); PLATELET COUNT (AUTO) 317 K/uL (140-450); RED CELL DISTRIBUTION WIDTH 14.9 % (11.6-13.7)
[2019-03-18] MEDS ORDERED: TOR30I IVP (10:39)
[2019-03-18] MEDS ORDERED: FER325 PO (10:39)
[2019-03-18] MEDS ORDERED: CEFT1SOL1 IV (10:39)
[2019-03-18] MEDS ORDERED: ONDA2SOL45 IM/IVP (10:39)
[2019-03-18] MEDS ORDERED: METR500S14 IV (10:39)
[2019-03-18] MEDS ORDERED: LACT10CA PO (10:39)
[2019-03-18] MEDS ORDERED: VITC500 PO (10:39)
[2019-03-18] MEDS ORDERED: POTA10TE30 PO (10:39)
--- NOTE | 2019-03-18 11:15 | NUR ---
PT ALERT ORIENTED X 4. PATIENT AMBULATED TO THE BATHROOM. IV INTACT AND PATENT TO RIGHT AC. IVF INFUSING AT 100ML/HR ORDERED TO INCREASE, TOLERATING WELL. NO S/S OF DISTRESS NOTED.
[2019-03-18 11:52] LABS: LYMPHOCYTES % (MANUAL) 2 % (20-46); MONOCYTES % (MANUAL) 2 % (5-12)
--- NOTE | 2019-03-18 14:00 | NUR ---
PATIENT IS IN BED, TALKING TO HER . DENIES ANY PAIN OR DISCOMFORT.
--- NOTE | 2019-03-18 16:00 | NUR ---
PER DR. PRINGLE PATIENT IS TO TRANSFER TO [facility]. PENDING CASE MANAGEMENT TO ARRANGE TRANSPORT.
[2019-03-18 17:45] VITALS: BP 113/65
--- NOTE | 2019-03-18 19:35 | NUR ---
REPORT GIVEN TO SUMMER CAMP COUNSELOR NURSE. PATIENT IS IN STABLE CONDITION.
--- NOTE | 2019-03-18 19:36 | NUR ---
RECEIVED PT FROM DAY SHIFT NURSE REPORT GIVEN AT BED SIDE PT IS AAOX4 DJIBOUTIAN SPEAKER , AMBULATORY IV ON RT AC GAUGE #20 INFUSING WELL, RELATIVES AT BED SIDE INITIAL ASSESSMENT DONE,
[2019-03-18 20:00] VITALS: BP 110/60
--- NOTE | 2019-03-18 20:00 | NUR ---
AURELIO NEWELL FROM [facility] CALL TO INFORM THAT THEY HAVE BED # 9075 AVAILABLE FOR THIS PT DR PRINGLE ALREADY ARRANGE FOR THIS TRANSFER AND DR GREEN IS THE RECEIVING PHYSICIAN, AND DR CAZARES WAS NOTIFY
[2019-03-18] MEDS: SODIUM FERRIC GLUCONATE 125 MG in NACL 0.9% 100 ML IV SCH (20:48)
[2019-03-18] MEDS: KETOROLAC 30 MG/ML VIAL IVP PRN (20:51)
--- NOTE | 2019-03-18 21:57 | NUR ---
TEMPERATURE 99.8 PT DENIES ANY PAIN OR DISCOMFORT
--- NOTE | 2019-03-18 22:00 | NUR ---
REPORT GIVEN TO CEDRICK NEWELL FROM [facility] [phone] PT IS GOING TO BED # 3652
[2019-03-18 22:17] VITALS: BP 110/60
--- NOTE | 2019-03-18 23:48 | NUR ---
PT DISCHARGE INSTRUCTION GIVEN RELATIVE AT BED SIDE PT IS READY TO BE TRANSFER , ALL PAPER WORK FOR DISCHARGE ALREADY SIGNED
--- NOTE | 2019-03-18 23:49 | NUR ---
AMBULANCE IS ON THE WAY TO [facility] THE PT
--- NOTE | 2019-03-18 23:55 | NUR ---
REYNOLD IS HERE AND SENIOR ACCOUNTS PAYABLE CLERK PT TO TRANSFER TO [facility] TO BED # 5503 ALL PROTOCOL FOR DISCHARGE DONE
== END 2019-03-18 23:55 | disposition short-term general hospital (02) | DRG 720 ==
LOC: MED 11:48 → MMU 15:50
PROVIDERS: ADMIT General Practice; ATTEND General Practice
PROC: 0FB03ZX Excision of Liver, Percutaneous Approach, Diagnostic (ICD-10-PCS; principal; 2019-03-16)
DX: A41.9 Sepsis, unspecified organism (principal); K75.0 Abscess of liver; E43 Unspecified severe protein-calorie malnutrition; E86.0 Dehydration; E87.6 Hypokalemia; D64.9 Anemia, unspecified; R31.9 Hematuria, unspecified; N85.9 Noninflammatory disorder of uterus, unspecified; D25.9 Leiomyoma of uterus, unspecified; E83.42 Hypomagnesemia; R73.03 Prediabetes; E80.6 Other disorders of bilirubin metabolism; Z68.26 Body mass index [BMI] 26.0-26.9, adult
CPT/HCPCS: 36415; 47000; 71045; 76700; 76705; 76830; 76856; 80048; 80053; 80305; 81001; 81025; 82009; 82140; 82150; 82272; 82607; 82728; 82746; 83036; 83540; 83605; 83690; 83735; 83880; 84100; 84134; 84439; 84443; 84484; 84550; 85025; 85045; 85610; 85730; 86140; 86704; 86706; 86708; 86709; 86803; 87040; 87045; 87070; 87075; 87081; 87086; 87177; 87186; 87205; 87340; 87804; 89055; 96365; 96368; 99285; J0696; J1885; J2001; J2250; J2310; J2543; J2916; J3010; J3475; J3480; J3490; J7030; J7042; J7060; Q0092; Q9967